=== PATIENT | female | born 1985 | race African-American/Black ===

== ENCOUNTER 2016-09-01 18:26 | Emergency (ER) | payer SELFPAY ==
[~2016-09-01] VITALS: Ht 170.2 cm; Wt 60.0 kg
[~2016-09-01 18:26] MED LIST: CIPR500T4 PO
[2016-09-01 18:28] VITALS: BP 146/71; PULSE 110; RESP 28; TEMP 97.5; O2SAT 99
--- NOTE | 2016-09-01 19:07 | PD ---
HPI Chief Complaint: GI Complaint Time Seen by Provider: 18:58 Travel History International Travel<30 days: No Contact w/Intl Traveler<30days: No Traveled to known affect area: No History of Present Illness HPI Examined in the presence of a female nurse. 31-year-old female presents with perirectal pain and swelling. Symptoms started 3 days ago. Pain is a throbbing pain constant worse when sitting. She tried putting Preparation H on the area but symptoms persisted which prompted evaluation. No fevers or chills , no obvious drainage, no rectal pain. No abdominal pain. Denies . No other complaints. PFSH Past Medical History Heart Rhythm Problems: Yes Cancer: No Cardiovascular Problems: Yes Diminished Hearing: No Genitourinary: No Musculoskeletal: Yes Neurologic: Yes (bells palsy) Psychiatric: No Immunizations Current: Yes Migraines: Yes ?: Not LMP: AUG 2016 Past Surgical History Other Surgery: No Social History Alcohol Use: No Tobacco Use: Yes (07/22 PPD) Substance Use: Yes (MARIJUNA) Allergies-Medications (Allergen,Severity, Reaction): Coded Allergies: Tramadol (Verified Allergy, Severe, FOAMING FROM THE MOUTH, 02/12/16) Uncoded Allergies: MAYONAISE (Allergy, Unknown, HIVES, 02/23/15) Reported Meds & Prescriptions Reported Meds & Active Scripts Active Clindamycin (Clindamycin HCl) 300 Mg Cap 300 Mg PO TID 7 Days Lortab (Hydrocodone-Acetaminophen) 5-325 Mg Tab 1 Tab PO Q6H PRN Cipro (Ciprofloxacin HCl) 500 Mg Tab 500 Mg PO BID Review of Systems Except as stated in HPI: all other systems reviewed are Neg Physical Exam Narrative GENERAL: Well-developed well-nourished female who appears to be in pain SKIN: Warm and dry. There is 1 m area of fluctuance at the 2 o'clock position near the rectum. No drainage. Tender to palpation. Rectal examination: There is no tenderness to palpation along the rectal mendoza, no fluctuance inside of the rectum. CARDIOVASCULAR: Regular rate and rhythm. No murmur appreciated. RESPIRATORY: No accessory muscle use. Clear to auscultation. Breath sounds equal bilaterally. GASTROINTESTINAL: Abdomen soft, non-tender, nondistended. Hepatic and splenic margins not palpable. MUSCULOSKELETAL: No obvious deformities. No clubbing. No cyanosis. No edema. NEUROLOGICAL: Awake and alert. No obvious cranial nerve deficits. Motor grossly within normal limits. Normal speech. PSYCHIATRIC: Appropriate mood and affect; insight and judgment normal. Data Data Last Documented VS Vital Signs Date Time Temp Pulse Resp B/P Pulse Ox O2 Delivery O2 Flow Rate FiO2 09/01/16 18:28 97.5 110 28 146/71 99 Room Air Orders Lidocai-Epi 1%-1:100,000 Inj (Xylocaine- (09/01/16 19:15) Acetamin-Hydrocod 325-5 Mg ([place] 5-325 (09/01/16 19:15) Ondansetron Odt (Zofran Odt) (09/01/16 19:15) Wound Culture And Gram Stain (09/01/16 19:31) MDM Medical Decision Making Medical Screen Exam Complete: Yes Emergency Medical Condition: Yes Medical Record Reviewed: Yes Differential Diagnosis Perirectal abscess, cyst, cellulitis, fissure, external hemorrhoid Narrative Course The patient appears to have a small left-sided perirectal abscess at the 2 o' clock position. She has no rectal pain on rectal examination. Plan is for incision and drainage for which verbally consents. The patient was given Lortab and Zofran for pain control. Wound culture performed. The patient is being discharged with a short course of Lortab, clindamycin. Procedures Procedure Narrative INCISION AND DRAINAGE OF ABSCESS: The area was prepped and was sterilely draped. A subcutaneous wheal of 1% Xylocaine with epinephrine with a total number 4 mL was used to anesthetize the area. The area was properly anesthetized. A number 11 scalpel was used to make a 0.5 -cm incision across the area of the abscess. Cultures were obtained. The abscess was drained an irrigated with normal saline. Diagnosis Primary Impression: Perirectal abscess Additional Instructions: Sit in a warm bath 15-20 minutes at a time 2-3 times a day. Take antibiotics as prescribed. Lortab for pain control. Do not drive or drink alcohol when taking this medication. Follow-up in the next 3-4 days with primary care physician. Return for any acutely new or worsening symptoms. Med/Other Pt SpecificInfo: Prescription(s) given, Wound Care Scripts Clindamycin 300 Mg [id number] Mg PO TID 7 Days Ref 0 Prov:Luz,Ubaldo J MD 09/01/16 Hydrocodone-Acetaminophen (Lortab)5-325 Mg Tab1 Tab PO Q6H PRN (PAIN) #12 TAB Ref 0 Prov:Ubaldo Luz MD 09/01/16 Disposition: 01 DISCHARGE HOME Condition: Stable Edward Donnelly Sep 01, 2016 19:06
[2016-09-01] MEDS ORDERED: ONDANSETRON ODT 4 MG TAB PO ONE (19:15)
[2016-09-01] MEDS ORDERED: ACETAMINOPHEN/HYDROcodone 325 MG/5 MG TAB PO ONE (19:15)
[2016-09-01] MEDS ORDERED: LIDOCAINE 1%/EPINEPHrine 1:100,000 SOLN 20 ML VIAL INFIL ONE (19:15)
[2016-09-01] MEDS ORDERED: HYDR-3533 PO (19:32)
[2016-09-01] MEDS ORDERED: CLIN1CAP6 PO (19:32)
== END 2016-09-01 20:11 | disposition home or self-care (01) ==
LOC: NEPC 18:26
DX: K61.1 Rectal abscess (principal); B95.1 Streptococcus, group B, as the cause of diseases classified elsewhere; B96.89 Other specified bacterial agents as the cause of diseases classified elsewhere
CPT/HCPCS: 10060; 46040; 86403; 87070; 87185; 87205

== ENCOUNTER 2017-03-14 07:19 | Emergency (ER) | payer SELFPAY ==
[~2017-03-14] VITALS: Ht 170.2 cm; Wt 60.0 kg
[~2017-03-14 07:19] MED LIST changes: +CLIN1CAP6 PO; +HYDR-3533 PO
--- NOTE | 2017-03-14 07:37 | PD ---
HPI . Back pain radiating to the right leg for 2 days Chief Complaint: Back/ Neck Pain or Injury Time Seen by Provider: 07:36 Travel History International Travel<30 days: No Contact w/Intl Traveler<30days: No Traveled to known affect area: No History of Present Illness HPI 31-year-old female here with complaints of back pain radiating to her right leg for 2 days. Patient denies any recent injury or falls. She denies any other symptoms. She has no bowel or bladder dysfunction. No saddle anesthesia. She is ambulatory [facility] Past Medical History Heart Rhythm Problems: Yes Cancer: No Cardiovascular Problems: Yes Diminished Hearing: No Genitourinary: No Musculoskeletal: Yes Neurologic: Yes (bells palsy) Psychiatric: No Immunizations Current: Yes Migraines: Yes ?: Not LMP: 03/09/17 Past Surgical History Other Surgery: No Social History Alcohol Use: No Tobacco Use: Yes (07/22 PPD) Substance Use: Yes (MARIJUNA) Allergies-Medications (Allergen,Severity, Reaction): Coded Allergies: tramadol (Unverified Allergy, Severe, FOAMING FROM THE MOUTH, 03/14/17) Uncoded Allergies: MAYONAISE (Allergy, Unknown, HIVES, 02/23/15) Reported Meds & Prescriptions Reported Meds & Active Scripts Active No Active Prescriptions or Reported Medications Review of Systems General / Constitutional: No: Fever Eyes: No: Visual changes HENT: No: Headaches Cardiovascular: No: Chest Pain or Discomfort Respiratory: No: Shortness of Breath Gastrointestinal: No: Abdominal Pain Genitourinary: No: Dysuria Musculoskeletal: Positive: Pain (lower back radiating to right leg) Skin: No Rash Neurologic: No: Weakness Psychiatric: No: Depression Endocrine: No: Polydipsia Hematologic/Lymphatic: No: Easy Bruising Physical Exam Narrative GENERAL: AAO x 3, no acute distress, Well-nourished, well-developed patient. SKIN: Warm and dry. No visible rashes or bruising. HEAD: Normocephalic and atraumatic. EYES: No scleral icterus. No injection or drainage. ENT: No nasal drainage noted. Mucous membranes pink. Airway patent. NECK: Supple, trachea midline. No JVD. CARDIOVASCULAR: Regular rate and rhythm without murmurs, gallops, or rubs. RESPIRATORY: Breath sounds equal bilaterally. No accessory muscle use. No rhonchi or rales. GASTROINTESTINAL: Visual inspection normal EXTREMITIES: No cyanosis or edema. Ambulatory. All joints nontender to palpation BACK: Nontender without obvious deformity. Straight leg raise positive on the right. Tenderness to the gluteus on the right side NEURO: CN II-12 intact, business information analyst strength normal b/l, UE and LE 5/5, no focal deficits PSYCH: AAO x 3, normal affect. Data Data Last Documented VS Vital Signs Date Time Temp Pulse Resp B/P (MAP) Pulse Ox O2 Delivery O2 Flow Rate FiO2 03/14/17 07:56 03/14/17 07:40 98.4 83 16 99 Room Air Orders Orders Ketorolac Inj (Toradol Inj) (03/14/17 07:45) MDM Medical Decision Making Medical Screen Exam Complete: Yes Emergency Medical Condition: Yes Medical Record Reviewed: Yes Differential Diagnosis Lumbago, sciatica, lumbar radiculopathy Narrative Course 31-year-old female here with what appears to be lower back pain with sciatica. She has a positive straight leg raise on the right side. Toradol here in the emergency department. Advised stretching at home. Follow-up with primary care provider. Tylenol and Motrin as needed for pain. Patient verbalized understanding of instructions, questions were answered, and thanked me for their care. I advised them if their condition worsens, please return to the nearest emergency room for further care. Diagnosis Primary Impression: Back pain with sciatica Patient Instructions: General Instructions Additional Instructions: Use Tylenol or Motrin as needed. Follow up with your primary care doctor as we discussed. Try stretching as this can help with your symptoms. Med/Other Pt SpecificInfo: No Change to Meds Scripts No Active Prescriptions or Reported Meds Disposition: DISCHARGE HOME Condition: Stable Charlee Duque Mar 14, 2017 07:37
[2017-03-14 07:40] VITALS: BP 121/88; PULSE 83; RESP 16; TEMP 98.4; O2SAT 99
[2017-03-14] MEDS ORDERED: KETOROLAC TROMETHAMINE 60 MG/2 ML (IM) VIAL IM ONE (07:45)
== END 2017-03-14 08:03 | disposition home or self-care (01) ==
LOC: NEPK 07:19
DX: M54.31 Sciatica, right side (principal); F17.200 Nicotine dependence, unspecified, uncomplicated
CPT/HCPCS: 96372; 99284; J1885

== ENCOUNTER 2017-07-04 10:24 | Emergency (ER) | payer SELFPAY ==
[2017-07-04 10:25] VITALS: BP 134/92; PULSE 100; RESP 12; TEMP 97.8; O2SAT 100
[2017-07-04] MEDS ORDERED: ROBA500T PO (11:07)
--- NOTE | 2017-07-04 11:07 | PD ---
HPI Chief Complaint: Back/ Neck Pain or Injury Time Seen by Provider: 10:52 Travel History International Travel<30 days: No Contact w/Intl Traveler<30days: No Traveled to known affect area: No History of Present Illness HPI 32-year-old female presents to emergency department complaining of acute on chronic low back pain for 2-3 days. Patient states she woke up with this pain and it has been worsening over the last couple days. Patient states that she has been using Tylenol or Motrin without significant relief. Patient states her pain is in her lower back radiates to the anterior thighs. States her pain is moderate. Back flexion decreases her pain, extension increases her pain. Patient denies fever, chills, trauma, loss of bowel or bladder function, IV drug use, saddle anesthesia, weakness. Patient denies chronic medical issues or chronic medication use. PFSH Past Medical History Heart Rhythm Problems: Yes Cardiovascular Problems: Yes Diminished Hearing: No Genitourinary: No Musculoskeletal: Yes (back pain hx) Neurologic: Yes (bells palsy) Psychiatric: No Immunizations Current: Yes Migraines: Yes Tetanus Vaccination: > 5 Years Influenza Vaccination: No ?: Not LMP: 06/19/17 : 0 Past Surgical History Surgical History: No Previous Surgery Other Surgery: No Social History Alcohol Use: No Tobacco Use: Yes (1/2 PPD) Substance Use: Yes (MARIJUNA) Allergies-Medications (Allergen,Severity, Reaction): Coded Allergies: tramadol (Verified Allergy, Intermediate, rash, 07/04/17) Reported Meds & Prescriptions Reported Meds & Active Scripts Active Robaxin (Methocarbamol) 500 Mg Tab 500 Mg PO TID 3 Days Review of Systems Except as stated in HPI: all other systems reviewed are Neg Physical Exam Narrative GENERAL: Well-developed, well-nourished in mild distress SKIN: Focused skin assessment warm/dry. HEAD: Atraumatic. Normocephalic. EYES: Pupils equal and round. No scleral icterus. No injection or drainage. ENT: No nasal bleeding or discharge. Mucous membranes pink and moist. NECK: Trachea midline. No JVD. CARDIOVASCULAR: Regular rate and rhythm. No murmur appreciated. RESPIRATORY: No accessory muscle use. Clear to auscultation. Breath sounds equal bilaterally. MUSCULOSKELETAL: No obvious deformities. No clubbing. No cyanosis. No edema. BACK: Mild TTP over mid lumbar area. significant muscle spasms of right lower lumbar region. (Patient states this is normally where she has her pain.) No step-offs, deformities, ecchymosis. There extremities grade 5 out of 5 strength. Neurovascularly intact NEUROLOGICAL: Awake and alert. No obvious cranial nerve deficits. Motor grossly within normal limits. Normal speech. PSYCHIATRIC: Appropriate mood and affect; insight and judgment normal. Data Data Last Documented VS Vital Signs Date Time Temp Pulse Resp B/P (MAP) Pulse Ox O2 Delivery O2 Flow Rate FiO2 07/04/17 11:20 97.8 76 16 110/74 (86) 99 Orders Orders Methylprednisolone So Succ Inj (Solumedr (07/04/17 11:15) Ketorolac Inj (Toradol Inj) (07/04/17 11:15) Methocarbamol (Robaxin) (07/04/17 11:15) Ed Discharge Order (07/04/17 11:08) [facility] Medical Decision Making Medical Screen Exam Complete: Yes Emergency Medical Condition: Yes Differential Diagnosis Lumbago with sciatica, muscle spasms, acute on chronic low back pain. Narrative Course 32-year-old female presents to emergency department complaining of acute on chronic low back pain for 2-3 days. Patient states she woke up with this pain and it has been worsening over the last couple days. Patient states that she has been using Tylenol or Motrin without significant relief. Patient states her pain is in her lower back radiates to the anterior thighs. States her pain is moderate. Back flexion decreases her pain, extension increases her pain. Patient denies fever, chills, trauma, loss of bowel or bladder function, IV drug use, saddle anesthesia, weakness. Patient denies chronic medical issues or chronic medication use. Vital signs stable Physical exam consistent with muscle spasms, lumbago with sciatica. No red flag signs or symptoms Slight Medrol, Toradol, Norflex administer the emergency department with good relief. I offered the patient a lumbar spine x-ray but she wanted to defer. Since there was no evidence of trauma or red flag signs, advised patient to consider getting outpatient imaging. Patient be discharged with Robaxin for muscle spasms. Advised she may take Tylenol or Motrin per package instructions [id number]. Follow-up primary care physician within 2 days. Return to the emergency department for worsening or persistent symptoms. Diagnosis Primary Impression: Back pain with sciatica Referrals: [facility] Departure Forms: Tests/Procedures, Work Release Enter return to work date: Jul 06, 2017 Additional Instructions: Perform light stretches of the lower back and legs, and alternate heat and ice packs. If you develop increased pain, weakness, fever, chills, or bowel or bladder issues, return to the ED for further treatment and evaluation. Follow up with your primary care physician in 2-3 days. Take medication as prescribed. Use [id number] Motrin per package instructions. Scripts Methocarbamol (Robaxin) 500 Mg Tab 500 MG PO TID for Muscle Spasm for 3 Days, TAB 0 Refills Prov: Gary Chavez MD 07/04/17 Disposition: 01 DISCHARGE HOME Condition: Stable Mariana Blake Jul 04, 2017 11:07
[2017-07-04] MEDS ORDERED: KETOROLAC TROMETHAMINE 60 MG/2 ML (IM) VIAL IM ONE (11:15)
[2017-07-04] MEDS ORDERED: METHOCARBAMOL 500 MG TAB PO ONE (11:15)
[2017-07-04] MEDS ORDERED: methylPREDNISolone SOD SUCC 125 MG/2 ML VIAL IM ONE (11:15)
[2017-07-04 11:20] VITALS: BP 110/74; TEMP 97.8
== END 2017-07-04 11:20 | disposition home or self-care (01) ==
LOC: NEPD 10:24
DX: M54.30 Sciatica, unspecified side (principal); F17.200 Nicotine dependence, unspecified, uncomplicated; Z88.5 Allergy status to narcotic agent
CPT/HCPCS: 96372; 99284; J1885; J2930

== ENCOUNTER 2017-10-17 15:05 | Emergency (ER) | payer SELFPAY ==
[~2017-10-17] VITALS: Ht 170.2 cm; Wt 60.0 kg
[~2017-10-17 15:05] MED LIST changes: -CIPR500T4 PO; -CLIN1CAP6 PO; -HYDR-3533 PO; +ROBA500T PO
[2017-10-17 15:15] VITALS: BP 142/69; PULSE 95; RESP 16; TEMP 98.7; O2SAT 99
--- NOTE | 2017-10-17 15:41 | PD ---
HPI Chief Complaint: ENT Complaint Time Seen by Provider: 15:27 Travel History International Travel<30 days: No Contact w/Intl Traveler<30days: No Traveled to known affect area: No History of Present Illness HPI 32-year-old -[place] female presents the emergency department with ringing and decreased hearing out of the right ear for the past several days. Patient is also noted some erythematous patchy rash over the past several days which is itchy. She has been staying at a friend's house between moving. She has no significant pain, fever, chills, headache, sore throat, or other symptoms. She is allergic to tramadol. PFSH Past Medical History Heart Rhythm Problems: Yes Cardiovascular Problems: Yes Diminished Hearing: No Genitourinary: No Musculoskeletal: Yes (back pain hx) Neurologic: Yes (bells palsy) Psychiatric: No Immunizations Current: Yes Migraines: Yes Tetanus Vaccination: Unknown Influenza Vaccination: No ?: Not : 0 Past Surgical History Surgical History: No Previous Surgery Other Surgery: No Social History Alcohol Use: No Tobacco Use: Yes (/2 PPD) Substance Use: Yes (MARIJUNA) Allergies-Medications (Allergen,Severity, Reaction): Coded Allergies: tramadol (Verified Allergy, Intermediate, rash, 10/17/17) Reported Meds & Prescriptions Reported Meds & Active Scripts Active No Active Prescriptions or Reported Medications Review of Systems Except as stated in HPI: all other systems reviewed are Neg General / Constitutional: No: Fever Eyes: No: Visual changes HENT: Positive: Other (Decreased hearing with ringing in the right ear.), No: Headaches, Vertigo, Lightheadedness, Sore Throat, Rhinitis, Rhinorrhea, Congestion, Nosebleed, Neck Stiffness, Neck Pain, Masses, Gingival Bleeding, Dental Difficulties, Ear Discharge, Earache Cardiovascular: No: Chest Pain or Discomfort Respiratory: No: Shortness of Breath Gastrointestinal: No: Abdominal Pain Genitourinary: No: Dysuria Musculoskeletal: No: Pain Skin: Positive Lesions (See history of present illness per), No Rash Neurologic: No: Weakness Psychiatric: No: Depression Endocrine: No: Polydipsia Hematologic/Lymphatic: No: Easy Bruising Physical Exam Narrative GENERAL: Patient appears in no acute distress. SKIN: Warm and dry. Normal color. Normal turgor. Patient has multiple erythematous dot-like lesions consistent with bedbug bites on her arms bilaterally. HEAD: Atraumatic. Normocephalic. EYES: Pupils equal and round. No scleral icterus. No injection or drainage. ENT: No nasal bleeding or discharge. Mucous membranes pink and moist. Right ear canals blocked by cerumen it is soft. Cerumen is removed with ear loop with resolution of symptoms. Both TMs are clear bilaterally. No sinus tenderness. Pharynx is clear. Airways patent. NECK: Trachea midline. Supple and nontender per CARDIOVASCULAR: Regular rate and rhythm. RESPIRATORY: No accessory muscle use. Clear to auscultation. Breath sounds equal bilaterally. MUSCULOSKELETAL: Extremities without clubbing, cyanosis, or edema. No obvious deformities. NEUROLOGICAL: Awake and alert. No obvious cranial nerve deficits. Motor grossly within normal limits. Five out of 5 muscle strength in the arms and legs. Normal speech. PSYCHIATRIC: Appropriate mood and affect; insight and judgment normal. Data Data Last Documented VS Vital Signs Date Time Temp Pulse Resp B/P (MAP) Pulse Ox O2 Delivery O2 Flow Rate FiO2 10/17/17 15:15 98.7 95 16 142/69 (93) 99 MDM Medical Decision Making Medical Screen Exam Complete: Yes Emergency Medical Condition: Yes Differential Diagnosis Bedbug bites. Cerumen impaction. Otitis media. Otitis externa Narrative Course Patient is medically stable at time of exam. Cerumen is removed with ear loop without difficulty. No further medical treatment is warranted. Procedures Procedure Narrative Cerumen is removed from right ear with ear loop without difficulty. No perforation of the TM is noted. Symptoms resolved and patient tolerated procedure very well. Diagnosis Primary Impression: Right ear impacted cerumen Patient Instructions: General Instructions Med/Other Pt SpecificInfo: No Meds Exist/No RX given Scripts No Active Prescriptions or Reported Meds Disposition: DISCHARGE HOME Condition: Stable Carlos Perez Oct 17, 2017 15:41
== END 2017-10-17 15:49 | disposition home or self-care (01) ==
LOC: NEPD 15:05
DX: H61.21 Impacted cerumen, right ear (principal); F12.90 Cannabis use, unspecified, uncomplicated; F17.200 Nicotine dependence, unspecified, uncomplicated
CPT/HCPCS: 69210